=== PATIENT | female | born 1955 | race Caucasian/White ===

== ENCOUNTER → 2016-09-28 | Outpatient (CLI) | payer BC ==
[~2016-09-28] MED LIST: ACHYD1T PO; IBUP-30 PO; KCL20TCR PO; LISI5TAB PO; MEDR5TAB4 PO; POTA10TA6 PO; PRD20T PO; SPIR100T28 PO; SPIR25TA3 PO; [UNRECOGNIZED DRUG - CODE] OP
--- NOTE | 2016-09-28 12:19 | Diagnostic Imaging Report ---
Bilateral screening mammogram The current study was also evaluated with a Computer Aided Detection (CAD) system. INDICATION: Screening. No current complaints stated on the questionnaire. COMPARISON: 03/28/2014. FINDINGS: The breasts are composed of scattered fibroglandular densities. There are occasional benign-appearing calcifications and suggestion of an intramammary lymph node in the axillary tail of the left breast. Allowing for technique and positional differences, no suspicious change is seen. IMPRESSION: No significant change. ACR BI-RADS Category 2: Benign findings. Result letter will be mailed to the patient. Note: At least 10% of breast cancer is not imaged by mammography. Dictated by: Dictated on workstation # [id number]
== END ==
LOC: RAD 08:54
PROVIDERS: ATTEND Family Medicine
DX: Z12.31 Encounter for screening mammogram for malignant neoplasm of breast (principal)
CPT/HCPCS: 77067

== ENCOUNTER 2016-11-07 12:30 | Outpatient (CLI) | payer BC ==
[~2016-11-07] VITALS: Ht 167.6 cm; Wt 133.4 kg
== END 2016-11-07 13:02 ==
LOC: PREOP 12:30
PROVIDERS: ATTEND Surgery
DX: Z01.818 Encounter for other preprocedural examination (principal); Z12.11 Encounter for screening for malignant neoplasm of colon

== ENCOUNTER → 2016-11-08 | Day surgery (SDC) | payer BC ==
[~2016-11-08] VITALS: Ht 167.6 cm; Wt 133.4 kg
[~2016-11-08] MED LIST changes: +LACTATED RINGERS 1,000 ML IV ONE; +LACTATED RINGERS 1,000 ML IV SCH; +MIDAZOLAM 2 MG/2 ML (VERSED) VIAL ONE; +PROPOFOL INJECTION 50 ML IV ONE
--- OUTSIDE RECORDS SUMMARY | 2016-11-08 08:01 | XMS REPORT ---
Author Author PEGGY TURCIOS eClinicalWorks Address Unknown Phone Unavailable Care Team Providers Care Pipe Production Worker Name Role Phone PEGGY TURCIOS CP Unavailable Allergies No Known Allergies Problems Problem Type Condition Code Onset Dates Condition Status Problem Anxiety state, unspecified F41.1 Active Problem Depressive disorder, not elsewhere classified F32.9 Active Problem Need for prophylactic vaccination and inoculation, Influenza V04.81 Active Assessment Anxiety state, unspecified F41.1 Active Assessment Depressive disorder, not elsewhere classified F32.9 Active Medications No Known Medications Procedures Procedure Coding System Code Date Psychotherapy, patient &/family, 45 minutes, established patient CPT-4 63564 Jan 01, 2015 Results No Known Results Summary Purpose eClinicalWorks Submission
--- OUTSIDE RECORDS SUMMARY | 2016-11-08 08:02 | XMS REPORT ---
Author Author PEGGY TURCIOS [employer] Address Unknown Phone Unavailable Care Team Providers Care Superintendent Of Generation Name Role Phone PEGGY TURCIOS CP Unavailable Allergies No Known Allergies Problems Problem Type Condition ICD-9 Code Onset Dates Condition Status Problem Need for prophylactic vaccination and inoculation, Influenza V04.81 Active Problem Depressive disorder, not elsewhere classified 311 Active Problem Anxiety state, unspecified 300.00 Active Assessment Anxiety state, unspecified 300.00 Active Assessment Depressive disorder, not elsewhere classified 311 Active Medications No Known Medications Procedures Procedure Coding System Code Date Psychotherapy, patient &/family, 45 minutes, established patient CPT-4 12037 Nov 24, 2014 Results No Known Results Summary Purpose eClinicalWorks Submission
--- OUTSIDE RECORDS SUMMARY | 2016-11-08 08:02 | XMS REPORT ---
Author Author PEGGY TURCIOS [employer] Address Unknown Phone Unavailable Care Team Providers Care Ginner Name Role Phone PEGGY TURCIOS CP Unavailable [...] patient &/family, 45 minutes, established patient CPT-4 85597 Feb 11, 2015 Results No Known Results Summary Purpose eClinicalWorks Submission
--- OUTSIDE RECORDS SUMMARY | 2016-11-08 08:02 | XMS REPORT ---
Author Author PEGGY TURCIOS [employer] Address Unknown Phone Unavailable Care Team Providers Care Ship'S Engineer Name Role Phone PEGGY TURCIOS CP Unavailable [...] patient &/family, 45 minutes, established patient CPT-4 79234 Dec 04, 2014 Results No Known Results Summary Purpose eClinicalWorks Submission
[2016-11-08 08:27] VITALS: BP 131/91
--- NOTE | 2016-11-08 09:27 | Progress Note-Post Operative ---
Post-Operative Progess Note Surgeon (s)/Boil Off Worker (s) Surgeon YANIRA BENITEZ DO Boil Off Worker: na Pre-Operative Diagnosis screening colonoscopy Post-Operative Diagnosis colon polyps and inflammed sigmoid area, diverticulosis Procedure & Operative Findings Date of Procedure 11/08/16 Procedure Performed/Findings colonoscopy with hot bx polypectomy x 2 hot bx x 2 sigmoid and jorge luis inking of sigmoid colon. Anesthesia Type per coke wheeler Estimated Blood Loss Estimated blood loss (mL): none Specimens/Packing Specimens Removed descending colon polyp, sigmoid colon polyp, sigmoid inflammation x 2 YANIRA BENITEZ DO Nov 08, 2016 09:27
--- NOTE | 2016-11-08 09:29 | Discharge Inst-Simple/Standard ---
Discharge Inst-Standard Patient Instructions/Follow Up Plan of Care/Instructions/FU: 2 weeks Naa high fiber diet Activity as Tolerated: Yes Discharge Diet: Regular Diet (high fiber) YANIRA BENITEZ DO Nov 08, 2016 09:29
[2016-11-08 09:40] VITALS: BP 129/89
[2016-11-08 10:05] VITALS: BP 119/72
--- NOTE | 2016-11-08 10:08 | OPERATIVE REPORT ---
DATE OF SERVICE: 11/08/2016 PREOPERATIVE DIAGNOSIS: Screening colonoscopy. POSTOPERATIVE DIAGNOSIS: Descending colon polyp, sigmoid colon polyp, sigmoid inflammation and diverticulosis. PROCEDURE: Colonoscopy with hot biopsy polypectomy x2 and hot biopsy x2 of the sigmoid colon inflammation area and the inking of the sigmoid colon. SURGEON: Yanira Jacome DO ANESTHESIA: Per FIELD HOCKEY AND LACROSSE COACH. ESTIMATED BLOOD LOSS: None. COMPLICATIONS: None. INDICATIONS: The patient is a 61-year-old female without ever having colonoscopy. She understands risks and benefits of the procedure and wished to proceed with the procedure. Consent was signed and placed in the chart. DESCRIPTION OF PROCEDURE: The patient was taken to the endoscopy suite, placed in left lateral recumbent position. Timeout was performed. Digital rectal exam was performed and there were no palpable polyps, masses or ulcerations. Scope was inserted in the rectum and advanced all the way to the cecum with minimal difficulty. Prep was adequate with irrigation and suction. Scope was then continued slowly retracted back. There are no polyps, masses or ulcerations within the cecum, ascending, transverse colon. Within the descending colon, a small polyp was present, which hot biopsy polypectomy was performed. The scope was continued to be slowly retracted back into the sigmoid which then another polyp was present, which hot biopsy polypectomy was performed. There was also a minimal amount of diverticulosis present. Within the sigmoid colon, there was also an area of inflamed, thickened appearing mucosa that was not quite circumferentially present but definitely noted. Hot biopsies were obtained. Just distal to this area to 2 mL of Randi ink was injected. The scope was continued slowly retracted back into the rectum where it was also retroflexed noting no other pathology. Scope was returned to its normal position, slowly withdrawn until completely removed. RECOMMENDATIONS: The patient will follow up in the office in 2 weeks to discuss pathology results. Depending upon the sigmoid area where it was inked, pathology would depend on further recommendations. Would likely at least take a look at this area in six months for reevaluation. If she has any problems prior to that we will take a look earlier. She also needs repeat colonoscopy in 5 years due to polyps. Job ID: [id number] DocumentID: [id number] Dictated Date: 11/08/2016 09:33:34 Compressor Service Technician Date: 11/08/2016 10:07:19 Dictated By: YANIRA JACOME DO
[2016-11-08 10:15] VITALS: BP 119/72
== END | disposition home or self-care (01) ==
LOC: ENDO 07:55
PROVIDERS: ATTEND Surgery
DX: Z12.11 Encounter for screening for malignant neoplasm of colon (principal); D12.4 Benign neoplasm of descending colon; D12.5 Benign neoplasm of sigmoid colon; K63.5 Polyp of colon; K57.30 Diverticulosis of large intestine without perforation or abscess without bleeding; I10 Essential (primary) hypertension; E78.5 Hyperlipidemia, unspecified; E66.9 Obesity, unspecified; Z68.42 Body mass index [BMI] 45.0-49.9, adult; Z79.899 Other long term (current) drug therapy

== ENCOUNTER 2017-05-23 09:53 | Outpatient (CLI) | payer BC ==
[~2017-05-23] VITALS: Ht 167.6 cm; Wt 131.1 kg
[~2017-05-23 09:53] MED LIST changes: -LACTATED RINGERS 1,000 ML IV ONE; -LACTATED RINGERS 1,000 ML IV SCH; -MIDAZOLAM 2 MG/2 ML (VERSED) VIAL ONE; -PROPOFOL INJECTION 50 ML IV ONE
[2017-05-23] MEDS ORDERED: LISI-556 PO (11:54)
[2017-05-23] MEDS ORDERED: POTA10TA10 PO (11:54)
[2017-05-23] MEDS ORDERED: SPIR100T2 PO (11:54)
== END 2017-05-23 11:58 ==
LOC: PREOP 09:53
PROVIDERS: ATTEND Surgery
DX: Z01.818 Encounter for other preprocedural examination (principal); Z12.11 Encounter for screening for malignant neoplasm of colon

== ENCOUNTER → 2017-05-30 | Day surgery (SDC) | payer BC ==
[~2017-05-30] VITALS: Ht 167.6 cm; Wt 131.1 kg
[~2017-05-30] MED LIST changes: +LACTATED RINGERS 1,000 ML IV STA; +LISI-556 PO; +MIDAZOLAM 2 MG/2 ML (VERSED) VIAL ONE; +POTA10TA10 PO; +PROPOFOL INJECTION 50 ML IV ONE; +SPIR100T2 PO
--- OUTSIDE RECORDS SUMMARY | 2017-05-30 10:22 | XMS REPORT | Continuity of Care Document ---
Author Author [facility] Organization [facility] Address Unknown Phone Unavailable Allergies Active Description Code Type Severity Reaction Onset Reported/Identified Relationship to Patient Clinical Status Yes No Known Drug Allergies [id number] Drug Allergy Unknown N/A 05/23/2017 Medications There is no data. Problems Date Dx Coded Attending Type Code Diagnosis Diagnosed By 03/23/2011 309.28 AD ADJ D/O W ANX DEP MOOD 03/23/2011 309.28 AD ADJ D/O W ANX DEP MOOD 03/23/2011 309.28 AD ADJ D/O W ANX DEP MOOD 03/23/2011 309.28 AD ADJ D/O W ANX DEP MOOD 03/23/2011 309.28 AD ADJ D/O W ANX DEP MOOD 03/23/2011 309.28 AD ADJ D/O W ANX DEP MOOD 03/23/2011 [facility], PEGGY R 309.28 AD ADJ D/O W ANX DEP MOOD 03/23/2011 [facility], PEGGY R 309.28 AD ADJ D/O W ANX DEP MOOD 03/23/2011 [facility], PEGGY R 309.28 AD ADJ D/O W ANX DEP MOOD 03/23/2011 [facility], PEGGY R 309.28 AD ADJ D/O W ANX DEP MOOD 03/23/2011 [facility], PEGGY R 309.28 AD ADJ D/O W ANX DEP MOOD 03/23/2011 [facility], PEGGY R 309.28 AD ADJ D/O W ANX DEP MOOD 03/23/2011 [facility], PEGGY R 309.28 AD ADJ D/O W ANX DEP MOOD 03/23/2011 [facility], PEGGY R 309.28 AD ADJ D/O W ANX DEP MOOD 03/23/2011 [facility], PEGGY R 309.28 AD ADJ D/O W ANX DEP MOOD 03/23/2011 [facility], PEGGY R 309.28 AD ADJ D/O W ANX DEP MOOD 03/23/2011 [facility], PEGGY R 309.28 AD ADJ D/O W ANX DEP MOOD 03/23/2011 [facility], PEGGY R 309.28 AD ADJ D/O W ANX DEP MOOD 03/23/2011 [facility], PEGGY R 309.28 AD ADJ D/O W ANX DEP MOOD 03/23/2011 [facility], PEGGY R 309.28 AD ADJ D/O W ANX DEP MOOD 03/23/2011 309.28 AD ADJ D/O W ANX DEP MOOD 03/23/2011 [facility], PEGGY R 309.28 AD ADJ D/O W ANX DEP MOOD 03/23/2011 [facility], PEGGY R 309.28 AD ADJ D/O W ANX DEP MOOD 03/23/2011 [facility], PEGGY R 309.28 AD ADJ D/O W ANX DEP MOOD 05/16/2011 Ot 351.0 05/16/2011 Ot 782.0 12/18/2012 [facility], PEGGY R 311 DEPRESSIVE DISORDER NOS 12/18/2012 [facility], PEGGY R 311 DEPRESSIVE DISORDER NOS 12/18/2012 [facility], PEGGY R 311 DEPRESSIVE DISORDER NOS 12/18/2012 [facility], PEGGY R 311 DEPRESSIVE DISORDER NOS 12/18/2012 [facility], PEGGY R 311 DEPRESSIVE DISORDER NOS 12/18/2012 [facility], PEGGY R 311 DEPRESSIVE DISORDER NOS 12/18/2012 [facility], PEGGY R 311 DEPRESSIVE DISORDER NOS 12/18/2012 [facility], PEGGY R 311 DEPRESSIVE DISORDER NOS 12/18/2012 [facility], PEGGY R 311 DEPRESSIVE DISORDER NOS 12/18/2012 [facility], PEGGY R 311 DEPRESSIVE DISORDER NOS 12/18/2012 [facility], PEGGY R 311 DEPRESSIVE DISORDER NOS 12/18/2012 [facility], PEGGY R 311 DEPRESSIVE DISORDER NOS 12/18/2012 [facility], PEGGY R 311 DEPRESSIVE DISORDER NOS 12/18/2012 [facility], PEGGY R 311 DEPRESSIVE DISORDER NOS 12/18/2012 311 DEPRESSIVE DISORDER NOS 12/18/2012 [facility], PEGGY R 311 DEPRESSIVE DISORDER NOS 12/18/2012 [facility], PEGGY R 311 DEPRESSIVE DISORDER NOS 12/18/2012 [facility], PEGGY R 311 DEPRESSIVE DISORDER NOS 06/11/2013 [facility], PEGGY R 300.00 AN ANXIETY UNSPEC 06/11/2013 [facility], PEGGY R 300.00 AN ANXIETY UNSPEC 06/11/2013 [facility], PEGGY R 300.00 AN ANXIETY UNSPEC 06/11/2013 [facility], PEGGY R 300.00 AN ANXIETY UNSPEC 06/11/2013 [facility], PEGGY R 300.00 AN ANXIETY UNSPEC 06/11/2013 [facility], PEGGY R 300.00 AN ANXIETY UNSPEC 06/11/2013 [facility], PEGGY R 300.00 AN ANXIETY UNSPEC 06/11/2013 [facility], PEGGY R 300.00 AN ANXIETY UNSPEC 06/11/2013 300.00 AN ANXIETY UNSPEC 06/11/2013 [facility], PEGGY R 300.00 AN ANXIETY UNSPEC 06/11/2013 [facility], PEGGY R 300.00 AN ANXIETY UNSPEC 06/11/2013 [facility], PEGGY R 300.00 AN ANXIETY UNSPEC 01/13/2014 V04.81 FLU SHOT 01/13/2014 [facility], PEGGY R V04.81 FLU SHOT 01/13/2014 [facility], PEGGY R V04.81 FLU SHOT 01/13/2014 [facility], PEGGY R V04.81 FLU SHOT 04/01/2014 Ot 611.72 04/01/2014 Ot V76.12 04/01/2014 SHERLYN GOMEZ, EDWIN Cardoza Ot 285.9 04/01/2014 SHERLYN GOMEZ, EDWIN Cardoza Ot 625.9 04/01/2014 SHERLYN GOMEZ, EDWIN Cardoza Ot 626.8 04/01/2014 SHERLYN GOMEZ, EDWIN Cardoza Ot V72.63 04/01/2014 SHERLYN GOMEZ, EDWIN Cardoza Ot V72.81 04/01/2014 SHERLYN GOMEZ, EDWIN Cardoza Ot V74.8 04/01/2014 SHERLYN GOMEZ, EDWIN Cardoza Ot 621.0 04/01/2014 SHERLYN GOMEZ, EDWIN Cardoza Ot 627.1 04/01/2014 HSERLYN GOMEZ, EDWIN Cardoza Ot 701.9 04/01/2014 SHERLYN GOMEZ, EDWIN Cardoza Ot V58.69 04/01/2014 MATEUSZ GOMEZ, TUTU Orozco Ot V76.12 04/01/2014 MATEUSZ GOMEZ, TUTU Orozco Ot V76.12 04/16/2014 MATEUSZ GOMEZ, TUTU Orozco Ot V76.12 2014 MATEUSZ GOMEZ, TUTU J Ot 722.11 2014 MATEUSZ GOMEZ, TUTU J Ot 722.51 2014 MATEUSZ GOMEZ, TUTU J Ot 733.90 04/24/2014 MATEUSZ GOMEZ, [facility] Ot 721.0 05/01/2014 Ot 611.72 05/01/2014 Ot V76.12 05/01/2014 SHERLYN GOMEZ, EDWIN Cardoza Ot 285.9 05/01/2014 SHERLYN GOMEZ, EDWIN Cardoza Ot 625.9 05/01/2014 SHERLYN GOMEZ, EDWIN Cardoza Ot 626.8 05/01/2014 SHERLYN GOMEZ, EDWIN Cardoza Ot V72.63 05/01/2014 SHERLYN GOMEZ, EDWIN Cardoza Ot V72.81 05/01/2014 SHERLYN GOMEZ, EDWIN Cardoza Ot V74.8 05/01/2014 SHERLYN GOMEZ, EDWIN Cardoza Ot 621.0 05/01/2014 SHERLYN GOMEZ, EDWIN Cardoza Ot 627.1 05/01/2014 SHERLYN GOMEZ, EDWIN Cardoza Ot 701.9 05/01/2014 SHERLYN GOMEZ, EDWIN Cardoza Ot V58.69 05/01/2014 MATEUSZ GOMEZ, [facility] Ot V76.12 05/01/2014 MATEUSZ GOMEZ, [facility] Ot V76.12 05/01/2014 MATEUSZ GOMEZ, [facility] Ot 721.0 05/01/2014 MATEUSZ GOMEZ, TUTU J Ot 722.11 05/01/2014 MATEUSZ GOMEZ, TUTU J Ot 722.51 05/01/2014 MATEUSZ GOMEZ, [facility] Ot 733.90 05/02/2014 MATEUSZ GOMEZ, [facility] Ot 724.1 05/02/2014 MATEUSZ GOMEZ, TUTU J Ot V57.1 05/05/2014 MATEUSZ GOMEZ, TUTU J Ot 724.1 05/05/2014 MATEUSZ GOMEZ, TUTU J Ot V57.1 05/06/2014 MATEUSZ GOMEZ, TUTU J Ot 724.1 05/06/2014 MATEUSZ GOMEZ, [facility] Ot V57.1 05/07/2014 MATEUSZ GOMEZ, TUTU J Ot 722.11 05/07/2014 MATEUSZ GOMEZ, [facility] Ot 722.51 05/07/2014 MATEUSZ GOMEZ, TUTU Orozco Ot 733.90 06/05/2014 MATEUSZ GOMEZ, TUTU Orozco Ot 724.1 PAIN IN THORACIC SPINE 06/05/2014 MATEUSZ GOMEZ, TUTU Orozco Ot V57.1 PHYSICAL THERAPY NEC 09/29/2016 JULIO GOMEZ, ANDREY Chen Ot Z12.31 ENCNTR SCREEN MAMMOGRAM FOR MALIGNANT NE 10/17/2016 ANDREY KIM MD Ot Z12.31 ENCNTR SCREEN MAMMOGRAM FOR MALIGNANT NE 11/07/2016 YANIRA BENITEZ DO Ot Z01.818 ENCOUNTER FOR OTHER PREPROCEDURAL EXAMIN 11/07/2016 YANIRA BENITEZ DO Ot Z12.11 ENCOUNTER FOR SCREENING FOR MALIGNANT NE 11/09/2016 YANIRA BENITEZ DO Ot E66.9 OBESITY, UNSPECIFIED 11/09/2016 YANIRA BENITEZ DO Ot E78.5 HYPERLIPIDEMIA, UNSPECIFIED 11/09/2016 YANIRA BENITEZ DO Ot I10 ESSENTIAL (PRIMARY) HYPERTENSION 11/09/2016 YANIRA BENITEZ DO Ot K57.30 DVRTCLOS OF LG INT W/O PERFORATION OR AB 11/09/2016 YANIRA BENIETZ DO Ot K63.5 POLYP OF COLON 11/09/2016 YANIRA BENITEZ DO Ot Z12.11 ENCOUNTER FOR SCREENING FOR MALIGNANT NE 11/09/2016 YANIRA BENITEZ DO Ot Z68.42 BODY MASS INDEX (BMI) 45.0-49.9, ADULT 11/09/2016 YANIRA BENITEZ DO Ot Z79.899 OTHER CUSTODIAL (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 THERAPY 11/10/2016 YANIRA BENITEZ DO Ot E66.9 OBESITY, UNSPECIFIED 11/10/2016 YANIRA BENITEZ DO Ot E78.5 HYPERLIPIDEMIA, UNSPECIFIED 11/10/2016 YANIRA BENITEZ DO Ot I10 ESSENTIAL (PRIMARY) HYPERTENSION 11/10/2016 YANIRA BENITEZ DO Ot K57.30 DVRTCLOS OF LG INT W/O PERFORATION OR AB 11/10/2016 YANIRA BENITEZ DO Ot K63.5 POLYP OF COLON 11/10/2016 YANIRA BENITEZ DO Ot Z12.11 ENCOUNTER FOR SCREENING FOR MALIGNANT NE 11/10/2016 YANIRA BENITEZ DO Ot Z68.42 BODY MASS INDEX (BMI) 45.0-49.9, ADULT 11/10/2016 YANIRA BENITEZ DO Ot Z79.899 OTHER CUSTODIAL (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 THERAPY 11/29/2016 YANIRA BENITEZ DO Ot D12.4 BENIGN NEOPLASM OF DESCENDING COLON 11/29/2016 YANIRA BENITEZ DO Ot D12.5 BENIGN NEOPLASM OF SIGMOID COLON 11/29/2016 YANIRA BENITEZ DO Ot E66.9 OBESITY, UNSPECIFIED 11/29/2016 YANIRA BENITEZ DO Ot E78.5 HYPERLIPIDEMIA, UNSPECIFIED 11/29/2016 YANIRA BENITEZ DO Ot I10 ESSENTIAL (PRIMARY) HYPERTENSION 11/29/2016 YANIRA BENITEZ DO Ot K57.30 DVRTCLOS OF LG INT W/O PERFORATION OR AB 11/29/2016 YANIRA BENITEZ DO Ot K63.5 POLYP OF COLON 11/29/2016 YANIRA BENITEZ DO Ot Z12.11 ENCOUNTER FOR SCREENING FOR MALIGNANT NE 11/29/2016 YANIRA BENITEZ DO Ot Z68.42 BODY MASS INDEX (BMI) 45.0-49.9, ADULT 11/29/2016 YANIRA BENITEZ DO Ot Z79.899 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 05/23/2017 YANIRA BENITEZ DO Ot Z01.818 ENCOUNTER FOR OTHER PREPROCEDURAL EXAMIN 05/23/2017 YANIRA BENITEZ DO Ot Z12.11 ENCOUNTER FOR SCREENING FOR MALIGNANT NE 05/24/2017 YANIRA BENITEZ DO Ot Z01.818 ENCOUNTER FOR OTHER PREPROCEDURAL EXAMIN 05/24/2017 YANIRA BENITEZ DO Ot Z12.11 ENCOUNTER FOR SCREENING FOR MALIGNANT NE 05/29/2017 Ot V76.12 OTH SCREEN MAMMO-MALIGN NEOPLASM OF LANDRY 05/29/2017 EDWIN PLATA MD Ot 285.9 ANEMIA NOS 05/29/2017 EDWIN PLATA MD Ot 625.9 FEM GENITAL SYMPTOMS NOS 05/29/2017 EDWIN PLATA MD Ot 626.8 MENSTRUAL DISORDER NEC 05/29/2017 EDWIN PLATA MD Ot V72.63 PRE-PROCEDURAL LABORATORY EXAMINATION 05/29/2017 EDWIN PLATA MD, Ot V72.81 UFMB-ALE-IBPUUFJQA CARDIOVASCULAR 05/29/2017 EDWIN PLATA MD, Ot V74.8 SCREEN-BACTERIAL DIS NEC 05/29/2017 EDWIN PLATA MD Ot 621.0 POLYP OF CORPUS UTERI 05/29/2017 EDWIN PLATA MD Ot 627.1 POSTMENOPAUSAL BLEEDING 05/29/2017 EDWIN PLATA MD Ot 701.9 SKIN HYPERTRO/ATROPH NOS 05/29/2017 EDWIN PLATA MD, Ot V58.69 OTH MED,LT,CURRENT USE 05/29/2017 MATEUSZ GOMEZ, TUTU Orozco Ot V76.12 OTH SCREEN MAMMO-MALIGN NEOPLASM OF LANDRY 05/29/2017 MATEUSZ GOMEZ, TUTU Orozco Ot V76.12 OTH SCREEN MAMMO-MALIGN NEOPLASM OF LANDRY 05/29/2017 MATEUSZ GOMEZ, TUTU Orozco Ot 721.0 CERVICAL SPONDYLOSIS 05/29/2017 MATEUSZ GOMEZ, TUTU Orozco Ot 722.11 THORACIC DISC DISPLACMNT 05/29/2017 MATEUSZ GOMEZ, TUTU Orozco Ot 722.51 THORACIC DISC DEGEN 05/29/2017 MATEUSZ GOMEZ, TUTU Orozco Ot 733.90 BONE CARTILAGE DIS NOS 05/29/2017 JULIO GOMEZ, ANDREY Chen Ot Z12.31 ENCNTR SCREEN MAMMOGRAM FOR MALIGNANT NE 05/29/2017 YANIRA BENITEZ DO Ot D12.4 BENIGN NEOPLASM OF DESCENDING COLON 05/29/2017 YANIRA BENITEZ DO Ot D12.5 BENIGN NEOPLASM OF SIGMOID COLON 05/29/2017 YANIRA BENITEZ DO Ot E66.9 OBESITY, UNSPECIFIED 05/29/2017 YANIRA BENITEZ DO Ot E78.5 HYPERLIPIDEMIA, UNSPECIFIED 05/29/2017 YANIRA BENITEZ DO Ot I10 ESSENTIAL (PRIMARY) HYPERTENSION 05/29/2017 YANIRA BENITEZ DO Ot K57.30 DVRTCLOS OF LG INT W/O PERFORATION OR AB 05/29/2017 YANIRA BENITEZ DO Ot K63.5 POLYP OF COLON 05/29/2017 YANIRA BENITEZ DO Ot Z12.11 ENCOUNTER FOR SCREENING FOR MALIGNANT NE 05/29/2017 YANIRA BENITEZ DO Ot Z68.42 BODY MASS INDEX (BMI) 45.0-49.9, ADULT 05/29/2017 YANIRA BENITEZ DO Ot Z79.899 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 Procedures Code [place] [address] INDIV PSYTX 20/30 MIN 01/26/2012 10851 PSYTX PT&/FAMILY 45 MINUTES 03/28/2012 25588 PSYTX PT&/FAMILY 45 MINUTES 05/04/2012 81636 PSYTX PT&/FAMILY 45 MINUTES 06/13/2012 92187 PSYTX PT&/FAMILY 45 MINUTES 09/05/2012 14012 PSYTX PT&/FAMILY 45 MINUTES 11/13/2012 42838 PSYTX PT&/FAMILY 45 MINUTES 12/19/2012 45860 PSYTX PT&/FAMILY 45 MINUTES 01/04/2013 84693 PSYTX PT&/FAMILY 45 MINUTES 01/25/2013 89730 PSYTX PT&/FAMILY 45 MINUTES 02/15/2013 63264 PSYTX PT&/FAMILY 45 MINUTES 03/22/2013 37149 PSYTX PT&/FAMILY 45 MINUTES 04/30/2013 34924 PSYTX PT&/FAMILY 45 MINUTES 06/11/2013 54190 PSYTX PT&/FAMILY 45 MINUTES 06/26/2013 54252 PSYTX PT&/FAMILY 45 MINUTES 07/31/2013 33393 PSYTX PT&/FAMILY 45 MINUTES 10/02/2013 83106 PSYTX PT&/FAMILY 45 MINUTES 11/08/2013 77455 PSYTX PT&/FAMILY 45 MINUTES 12/06/2013 63992 PSYTX PT&/FAMILY 45 MINUTES 01/08/2014 43247 PSYTX PT&/FAMILY 45 MINUTES 01/31/2014 70045 PSYTX PT&/FAMILY 45 MINUTES 03/04/2014 54469 PSYTX PT&/FAMILY 45 MINUTES 04/01/2014 43239 PSYTX PT&/FAMILY 45 MINUTES 06/26/2014 Results There is no data. Encounters ACCT No. Visit Date/Time Discharge Status Pt. Type Provider Facility Loc./Unit Complaint [id number] 05/23/2017 09:53:00 05/23/2017 11:58:00 DIS Outpatient YANIRA BENITEZ DO [facility] PREOP COLONOSCOPY [id number] 11/08/2016 07:55:00 11/08/2016 23:59:59 CLS Outpatient YANIRA BENITEZ DO [facility] ENDO SCREENING COLONOSCOPY [id number] 11/07/2016 12:30:00 11/07/2016 13:02:00 DIS Outpatient YANIRA BENITEZ DO [facility] PREOP SCREENING COLONOSCOPY [id number] 09/28/2016 08:54:00 09/28/2016 23:59:59 CLS Outpatient ANDREY KIM MD [facility] RAD SCREENING [id number] 05/09/2014 15:45:00 05/09/2014 23:59:59 CLS Outpatient TUTU CHILD MD [facility] REHAB NECK AND UPPER BACK PAIN [id number] 04/21/2014 11:15:00 04/21/2014 23:59:59 CLS Outpatient TUTU CHILD MD [facility] RAD UPPER BACK PAIN, DEGENERATIVE CHANGES [id number] 04/01/2014 16:25:00 04/01/2014 23:59:59 CLS Outpatient TUTU CHILD MD [facility] RAD USPEC BACK PAIN, RADIATING THROUGH ARM [id number] 03/28/2014 09:32:00 03/28/2014 23:59:59 CLS Outpatient TUTU CHILD MD [facility] RAD SCREENING [id number] 01/28/2013 08:47:00 01/28/2013 23:59:59 CLS Outpatient TUTU CHILD MD [facility] RAD SCREENING [id number] 09/10/2012 07:25:00 09/10/2012 23:59:59 CLS Outpatient EDWIN PLATA MD [facility] DYSFUNCTIONAL UTERINE BLEEDING; INTRAUTERINE MASS [id number] 09/06/2012 08:23:00 09/06/2012 23:59:59 CLS Outpatient EDWIN PLATA MD [facility] PREOP DUB, INTRAUTERINE MASS [id number] 05/30/2017 12:15:00 PEN Preadmit YANIRA BENITEZ DO [facility] ENDO HX POLYPS [id number] 12/19/2011 11:15:00 Document Registration [id number] 05/16/2011 06:33:00 Document Registration [id number] 06/02/2009 14:07:00 Document Registration [id number] 06/26/2014 08:59:00 06/26/2014 23:59:59 CLS Outpatient [facility], PEGGY April [id number] 04/01/2014 15:00:00 04/01/2014 23:59:59 CLS Outpatient [facility], PEGGY Chen [id number] 03/04/2014 16:04:00 03/04/2014 23:59:59 CLS Outpatient [facility], PEGGY Chen [id number] 02/03/2014 13:10:00 02/03/2014 23:59:59 CLS Outpatient [id number] 01/31/2014 16:06:00 01/31/2014 23:59:59 CLS Outpatient KAROLINA LSCS, PEGGY R [id number] 01/08/2014 13:04:00 01/08/2014 23:59:59 CLS Outpatient KAROLINA LSCS, PEGGY Chen [id number] 12/06/2013 16:05:00 12/06/2013 23:59:59 CLS Outpatient KAROLINA LSCS, PEGGY Chen [id number] 11/08/2013 14:01:00 11/08/2013 23:59:59 CLS Outpatient KAROLINA LSCS, PEGGY Chen [id number] 10/01/2013 14:56:00 10/01/2013 23:59:59 CLS Outpatient KAROLINA LSCS, PEGGY Chen [id number] 07/31/2013 15:03:00 07/31/2013 23:59:59 CLS Outpatient KAROLINA LSCS, PEGGY Chen [id number] 06/25/2013 17:04:00 06/25/2013 23:59:59 CLS Outpatient KAROLINA LSCS, PEGGY R [id number] 06/11/2013 16:59:00 06/11/2013 23:59:59 CLS Outpatient KAROLINA LSCS, PEGGY R [id number] 04/26/2013 08:02:00 04/26/2013 23:59:59 CLS Outpatient KAROLINA LSCS, PEGGY Chen [id number] 03/22/2013 09:03:00 03/22/2013 23:59:59 CLS Outpatient KAROLINA LSCS, PEGGY Chen [id number] 02/15/2013 14:00:00 02/15/2013 23:59:59 CLS Outpatient PEGGY MCKOY [id number] 01/25/2013 10:02:00 01/25/2013 23:59:59 CLS Outpatient PEGGY MCKOY April [id number] 01/04/2013 16:00:00 01/04/2013 23:59:59 CLS Outpatient PEGGY MCKOY April [id number] 12/18/2012 18:06:00 12/18/2012 23:59:59 CLS Outpatient PEGGY MCKOY April [id number] 06/12/2012 12:03:00 06/12/2012 23:59:59 CLS Outpatient [id number] 05/04/2012 08:09:00 05/04/2012 23:59:59 CLS Outpatient [id number] 03/28/2012 13:00:00 03/28/2012 23:59:59 CLS Outpatient [id number] 01/24/2012 12:08:00 01/24/2012 23:59:59 CLS Outpatient [id number] 11/13/2012 17:52:00 Document Registration [id number] 09/05/2012 07:57:00 Document Registration
[2017-05-30 10:45] VITALS: BP 139/100
--- NOTE | 2017-05-30 10:52 | Progress Note-Pre Operative ---
Pre-Operative Progress Note H&P Reviewed The H&P was reviewed, patient examined and no changes noted. Date Seen by Provider: May 30, 2017 Time Seen by Provider: 10:51 Date H&P Reviewed: May 30, 2017 Time H&P Reviewed: 10:52 Pre-Operative Diagnosis: history of polyps YANIRA BENITEZ DO May 30, 2017 10:52
--- NOTE | 2017-05-30 11:31 | Progress Note-Post Operative ---
Post-Operative Progess Note Surgeon (s)/Bench Assembler Electrical (s) Surgeon YANIRA BENITEZ DO Bench Assembler Electrical: na Pre-Operative Diagnosis history of polyps Post-Operative Diagnosis colon polyps x 2 Procedure & Operative Findings Date of Procedure 05/30/17 Procedure Performed/Findings colonoscopy c hot bx polypectomy x 2 Anesthesia Type per mda Estimated Blood Loss Estimated blood loss (mL): none Specimens/Packing Specimens Removed ascending and transverse colon polyp YANIRA BENITEZ DO May 30, 2017 11:31
--- NOTE | 2017-05-30 11:34 | Anesthesia-General Post-Op ---
MAC Patient Condition Mental Status/LOC: Same as Preop Cardiovascular: Satisfactory Nausea/Vomiting: Absent Respiratory: Satisfactory Pain: Controlled Complications: Absent Post Op Complications Complications None Follow Up Care/Instructions Patient Instructions None needed. Anesthesiology Discharge Order Discharge Order Patient is doing well, no complaints, stable vital signs, no apparent adverse anesthesia problems. ARTURO COUGHLIN DO May 30, 2017 11:34
--- NOTE | 2017-05-30 11:37 | Discharge Inst-Simple/Standard ---
Discharge Inst-Standard Patient Instructions/Follow Up Plan of Care/Instructions/FU: 2 weeks Naa Activity as Tolerated: Yes Discharge Diet: No Restrictions, Regular Diet Copy Copies To 1: ANDREY KIM MD, BRETT D DO May 30, 2017 11:37
[2017-05-30 11:55] VITALS: BP 118/72
[2017-05-30 12:30] VITALS: BP 128/78
[2017-05-30 12:40] VITALS: BP 128/78
--- NOTE | 2017-05-30 16:32 | OPERATIVE REPORT ---
DATE OF SERVICE: 05/30/2017 PREOPERATIVE DIAGNOSIS: History of polyps. POSTOPERATIVE DIAGNOSIS: Colon polyp x2. PROCEDURE: Colonoscopy with hot biopsy polypectomy x2. SURGEON: Yanira Jacome DO ANESTHESIA: Per MDA. ESTIMATED BLOOD LOSS: None. COMPLICATIONS: None. INDICATIONS: The patient is a 62-year-old female with history of polyps. She understands the risks and benefits of procedure and wished to proceed with procedure. Consent was signed and in the chart. DESCRIPTION OF PROCEDURE: The patient was taken to the endoscopy suite, placed in left lateral recumbent position. Timeout was performed. Digital rectal exam was performed and there were no palpable polyps, masses or ulcerations. Scope was inserted in the rectum and advanced all the way to the cecum with minimal difficulty. Prep was adequate. Scope was then slowly retracted back. There were no polyps, masses or ulcerations in the cecum. In the ascending colon, a very tiny polyp was present, which hot biopsy polypectomy was performed. Scope was continuously retracted back to the transverse colon. Another small polyp was present, which hot biopsy polypectomy was performed. This was unable to be collected for specimen though. It was lost in the channel of the scope. Scope was continued to be slowly retracted back. There were no polyps, masses or ulcerations within the descending and sigmoid colon. There was a little bit of diverticulosis within the sigmoid colon. There was the Randi inking in the colon also noted on the left side of the colon demonstrating no pathology. The scope was continuously slowly retracted back into the rectum, where it was also retroflexed noting no other pathology. The scope was then returned to its normal position, slowly withdrawn until completely removed. The patient tolerated the procedure well without any complications. She was taken to the recovery room in stable condition. RECOMMENDATIONS: The patient will need repeat colonoscopy in 3 years. She will follow up in the office in 2 weeks to discuss pathology. If she has any problems prior to that, she should be reevaluated at that time. Job ID: [id number] DocumentID: [id number] Dictated Date: 05/30/2017 11:40:35 Drugless Doctor Date: 05/30/2017 16:31:18 Dictated By: YANIRA JACOME DO
== END | disposition home or self-care (01) ==
LOC: ENDO 10:18
PROVIDERS: ATTEND Surgery
DX: Z09 Encounter for follow-up examination after completed treatment for conditions other than malignant neoplasm (principal); D12.2 Benign neoplasm of ascending colon; I10 Essential (primary) hypertension; E78.5 Hyperlipidemia, unspecified; E66.01 Morbid (severe) obesity due to excess calories; Z68.42 Body mass index [BMI] 45.0-49.9, adult; Z86.010 Personal history of colon polyps; Z79.899 Other long term (current) drug therapy

== ENCOUNTER → 2018-10-15 | Outpatient (CLI) | payer BC ==
[~2018-10-15] MED LIST changes: -LACTATED RINGERS 1,000 ML IV STA; -MIDAZOLAM 2 MG/2 ML (VERSED) VIAL ONE; -PROPOFOL INJECTION 50 ML IV ONE; -SPIR100T2 PO; +SPIR100T4 PO
--- NOTE | 2018-10-15 21:20 | Diagnostic Imaging Report ---
Digital mammogram bilateral screening. The current study was also evaluated with a Computer Aided Detection (CAD) system. 3-D tomosynthesis was also performed and reviewed. INDICATION: Screening. This study was compared to the prior exams of 09/28/2016, 03/28/2014, and 01/28/2013. At this time, there are no current complaints. FINDINGS: There are scattered fibroglandular densities in both breasts which could obscure a lesion. When compared to the prior study, there has been no significant change. There is no primary or secondary sign of malignancy noted. The 3D tomographic views also fail to show any sign of malignancy. IMPRESSION: There is no evidence of malignancy. ACR BI-RADS Category 1: Negative. Result letter will be mailed to the patient. Note: At least 10% of breast cancer is not imaged by mammography. Dictated by: Dictated on workstation # [id number]
== END ==
LOC: RAD 08:24
PROVIDERS: ATTEND Family Medicine
DX: Z12.31 Encounter for screening mammogram for malignant neoplasm of breast (principal)
CPT/HCPCS: 77067

== ENCOUNTER → 2019-10-28 | Outpatient (CLI) | payer BC ==
--- NOTE | 2019-10-28 11:44 | Diagnostic Imaging Report ---
INDICATION: Routine screening. COMPARISON: 10/15/2018 and 09/28/2016. TECHNIQUE: 2D and 3D bilateral screening mammography was performed with CAD. FINDINGS: Scattered fibroglandular densities are identified bilaterally. The nodular density and benign calcifications in the left breast appear stable. No new mass or malignant appearing microcalcifications are seen. The axillae are unremarkable. IMPRESSION: No mammographic features suspicious for malignancy are identified. ACR BI-RADS Category 2: Benign findings. Result letter will be mailed to the patient. Note: At least 10% of breast cancer is not imaged by mammography. Dictated by: Dictated on workstation # [id number]
== END ==
LOC: RAD 08:00
PROVIDERS: ATTEND Family Medicine
DX: Z12.31 Encounter for screening mammogram for malignant neoplasm of breast (principal)
CPT/HCPCS: 77063; 77067

== ENCOUNTER → 2020-07-13 | Outpatient (CLI) | payer BC ==
[~2020-07-13] VITALS: Ht 167.6 cm; Wt 124.3 kg
[~2020-07-13] MED LIST changes: -LISI-556 PO; +LISI-729 PO; +POTA10CA43 PO
== END | disposition home or self-care (01) ==
LOC: PREOP 05:37
PROVIDERS: ATTEND Surgery
DX: Z01.818 Encounter for other preprocedural examination (principal)

== ENCOUNTER → 2020-07-21 | Day surgery (SDC) | payer BC ==
[~2020-07-21] VITALS: Ht 167 cm; Wt 124.0 kg
[2020-07-21] VITALS (8 sets, daily range): BP systolic 107–163; BP diastolic 55–88
[~2020-07-21] MED LIST changes: +LACTATED RINGERS 1,000 ML IV ONE; +LACTATED RINGERS 1,000 ML IV STA; +MIDAZOLAM 2 MG/2 ML (VERSED) VIAL ONE; +NS IV 500 ML 500 ML ONE; +PROPOFOL INJECTION 50 ML IV ONE
--- NOTE | 2020-07-21 09:41 | Progress Note-Pre Operative ---
Pre-Operative Progress Note H&P Reviewed The H&P was reviewed, patient examined and no changes noted. Date Seen by Provider: Jul 21, 2020 Time Seen by Provider: 09:40 Date H&P Reviewed: Jul 21, 2020 Time H&P Reviewed: 09:40 Pre-Operative Diagnosis: history of polyps YANIRA BENITEZ DO Jul 21, 2020 09:41
--- NOTE | 2020-07-21 11:09 | Anesthesia-General Post-Op ---
MAC Patient Condition Mental Status/LOC: Same as Preop Cardiovascular: Satisfactory Nausea/Vomiting: Absent Respiratory: Satisfactory Pain: Controlled Complications: Absent Post Op Complications Complications None Follow Up Care/Instructions Patient Instructions None needed. Anesthesiology Discharge Order Discharge Order Patient is doing well, no complaints, stable vital signs, no apparent adverse anesthesia problems. No complications reported per nursing. RON BEST CRNA Jul 21, 2020 11:09
--- NOTE | 2020-07-21 17:08 | OPERATIVE REPORT ---
DATE OF SERVICE: 07/21/2020 PREOPERATIVE DIAGNOSIS: History of polyps. POSTOPERATIVE DIAGNOSIS: Polyps. PROCEDURE: Colonoscopy with hot biopsy polypectomy x2. SURGEON: Yanira Jacome DO ANESTHESIA: Per FLYING TEACHER. ESTIMATED BLOOD LOSS: None. COMPLICATIONS: None. INDICATIONS: The patient is a 65-year-old female needing colonoscopy. She understands risks and benefits and wishes to proceed with procedure. Consent was signed in the chart. DESCRIPTION OF PROCEDURE: The patient was taken to the endoscopy suite, placed in left lateral recumbent position. Timeout was performed. Digital rectal exam was performed. No polyps, masses or ulcerations. Scope was inserted in the rectum and advanced all the way to cecum with minimal difficulty. Prep was adequate. Scope was then slowly retracted back. There were no polyps, masses or ulcerations within the cecum and ascending colon. In transverse colon, a small polyp was present, which hot biopsy polypectomy was performed. The scope was then continuously retracted back in the descending colon, another small polyp was present, which hot biopsy polypectomy was performed. Scope was then continuously retracted back until the sigmoid where diverticulosis was noted and also some Randi inking with no evidence of any polyp. Scope was then slowly retracted back to the rectum where scope was also retroflexed noting no other pathology. Scope was returned to its normal position, slowly withdrawn until completely removed. The patient tolerated procedure well without any complications. She was taken to recovery room in stable condition. RECOMMENDATIONS: The patient will need a repeat colonoscopy in 5 years due to history of colon polyps. We would recommend high-fiber diet due to diverticulosis. Any issues before that, she should be reevaluated at that time. The patient will follow up in the office in 2 weeks to discuss pathology results. Job ID: [id number] DocumentID: [id number] Dictated Date: 07/21/2020 11:42:22 Entry Level Financial Analyst Date: 07/21/2020 17:08:19 Dictated By: YANIRA JACOME DO [facility] HOSPITALArgelia
== END ==
LOC: ENDO 08:23
PROVIDERS: ATTEND Surgery
DX: K63.5 Polyp of colon (principal); I10 Essential (primary) hypertension; G47.33 Obstructive sleep apnea (adult) (pediatric); M19.90 Unspecified osteoarthritis, unspecified site; E78.5 Hyperlipidemia, unspecified; E78.00 Pure hypercholesterolemia, unspecified; E66.9 Obesity, unspecified; Z68.41 Body mass index [BMI] 40.0-44.9, adult; Z79.899 Other long term (current) drug therapy; Z90.49 Acquired absence of other specified parts of digestive tract
CPT/HCPCS: 88305